=== PATIENT | female | born 1970 | race Caucasian/White ===

== ENCOUNTER 2025-02-11 23:33 | Emergency (ER) | payer MEDICAID, SELFPAY ==
[2025-02-11 23:43] VITALS: BP 127/73
--- NOTE | 2025-02-12 01:59 | ED.GENMED ---
History of Present Illness
General
Chief Complaint: Fatigue
Source: patient
Exam Limitations: none
Time Seen by Provider: 02/11/25 23:54
Nursing documentation reviewed up to this point in time: agreed with
History of Present Illness
History of Present Illness:
This is a 55-year-old woman who currently resides in [facility]. She traveled via train to this area on Sunday as she had a court date in [place] sometime this week. Upon arrival to [facility] on Sunday it was then discovered
that her court date was scheduled for Sunday. She states they are currently no affordable local hotel rooms and no local shelters available thus she has been sleeping in the ED waiting room over the past 2 nights. She did attend her
court appointment earlier today and she has a bus ticket to return to [place] tomorrow at 4 PM. For tonight however she planned to sleep in our waiting room but was awoken by security staff who recommended she be evaluated in the ED.
Patient currently offers no medical complaints, offers no complaints other than she is currently, temporarily homeless.
Past History
Social History
Tobacco: Non-smoker
Alcohol: None
Drug: None
Personal: Single
Living: alone
Family History
Family History: Other (Noncontributory)
Phy Exam
Physical Exam
Physical Exam:
PHYSICAL EXAMINATION:
General: 55-year-old woman appears her stated age, awake and alert, pleasant, easily communicative and appears in no acute distress.
HEENT: Oral mucosa is moist. No rhinorrhea.
HEART: Regular rate and rhythm. No murmur nor rub.
LUNGS: No respiratory distress. Lungs are clear to auscultation.
Neuro: alert and oriented. no focal neurological deficits. Gait is within steady.
Psychiatric: well kept. interactive and cooperative
Musculoskeletal: [Nontender. Full range of motion]
Course
Vital Signs
Initial and Last Documented VS:
Initial Vital Signs
Temp Pulse Resp BP Pulse Ox
97.8 F 85 20 127/73 96
02/11/25 23:43 02/11/25 23:43 02/11/25 23:43 02/11/25 23:43 02/11/25 23:43
Last Documented Vital Signs
Temp Pulse Resp BP Pulse Ox
97.8 F 85 20 127/73 96
02/11/25 23:43 02/11/25 23:43 02/11/25 23:43 02/11/25 23:43 02/11/25 23:43
MDM/Problems Addressed
Differential Diagnosis Includes:
The Differential Diagnosis includes, in no particular order and is not limited to:
1. Homelessness-related stress
2. Substance use disorder
3. Depression
4. Anxiety disorders
5. Post-traumatic stress disorder
6. Adjustment disorders
7. Social isolation
8. Economic hardship
9. Transportation barriers
10. Health care access issues
MDM/Problems Addressed:
Current, temporary homelessness.
Patient resides in [facility] And has a bus ticket to return to [place], 4 PM February 12.
She does admit to some moderate ongoing stress issues but denies suicidal thoughts or plan. Has been offered [facility] crisis evaluation which she declines.
She has been offered to remain in the ED to rest with plan for discharge in the a.m.
She has been offered a box lunch which she readily accepted.
Medical screening exam reveals no acute medical issues.
*Pulse Oximetry
SaO2: 96
Oxygen Mode of Delivery: Room air
Patient hypoxic: no
*Critical Care Note
Total Time (30-74mins, 75-104mins- exclusive of procedures): Not Applicable
Patient Management
Social determinants of health affecting care: Living situation (Resides in [place]. Currently, temporarily homeless. Has a bus ticket to return to [facility] scheduled 4 PM February 12.) and Financial situation (Unable to afford local hotel
rooms. No local homeless shelters available)
ED Attending Note
-
Portions of this chart may have been created with voice recognition software.� Occasional wrong word or��sound alike� substitutions may have occurred due to the inherent limitations of voice recognition software.
Discharge Plan
Departure
Patient Disposition: Home (Routine Discharge)
Date of Disposition: 02/12/25
Time of Disposition: 02:08
Patient with high blood pressure during this ER visit?: No
Condition: Good
Discharge Problem:
Housing insecurity
Referrals:
UNKNOWN - PT DOES,NOT KNOW [Family Provider]
Interventions
Interventions:
*Risk Screen - Suicide Last Done: 02/11/25 23:47
*General Assessment Last Done: 02/11/25 23:47
*Neglect/Abuse Screening Last Done: 02/11/25 23:47
*ED- Fall Risk Assessment Last Done: 02/11/25 23:47
*ED COVID-19 Vaccine History Last Done: 02/11/25 23:47
*ED Influenza Vaccine History Last Done: 02/11/25 23:47
Discharge Date and Time
Print Language: KHMER
[2025-02-12 02:34] VITALS: BP 98/68
== END 2025-02-12 02:36 | disposition home or self-care (01) ==
LOC: EMR 23:33
PROVIDERS: EMERGENCY PHYSICIAN Emergency Medicine
DX: Z59.00 Homelessness unspecified (principal)
CPT/HCPCS: 99281